=== PATIENT | female | born 1990 | race Caucasian/White ===

== ENCOUNTER 2016-12-11 20:49 | Emergency (ER) | payer OTHER ==
[~2016-12-11 20:49] MED LIST: IBUPROFEN600 MG PO
[2016-12-11 22:46] LABS: HEMOGLOBIN 12.5 gm/dl (12.3-15.3); RED BLOOD COUNT 4.09 M/UL (4.00-5.10); WHITE BLOOD COUNT 11.5 K/UL (4.5-11.0)
[2016-12-11 22:54] LABS: BUN/CREATININE RATIO 14 (0-10)
== END 2016-12-12 02:45 | disposition home or self-care (01) ==
LOC: ER1 20:49
PROVIDERS: Emergency Medicine
DX: O20.0 Threatened abortion (principal); O23.41 Unspecified infection of urinary tract in pregnancy, first trimester; O99.331 Smoking (tobacco) complicating pregnancy, first trimester; F17.210 Nicotine dependence, cigarettes, uncomplicated; Z88.2 Allergy status to sulfonamides; Z3A.01 Less than 8 weeks gestation of pregnancy
CPT/HCPCS: 36415; 76817; 80053; 81001; 84702; 85025; 86900; 86901; 87077; 87086; 87186; 99284; J7030

== ENCOUNTER → 2016-12-15 | Outpatient (CLI) | payer OTHER | LOC: LAB 09:21 | DX: N93.9 Abnormal uterine and vaginal bleeding, unspecified (principal) | CPT/HCPCS: 36415; 84702 ==

== ENCOUNTER 2016-12-25 22:03 | Emergency (ER) | payer OTHER ==
[2016-12-26 02:03] LABS: HEMOGLOBIN 11.6 gm/dl (12.3-15.3); RED BLOOD COUNT 3.8 M/UL (4.00-5.10); WHITE BLOOD COUNT 12.8 K/UL (4.5-11.0)
[2016-12-26 02:29] LABS: BUN/CREATININE RATIO 23 (0-10)
== END 2016-12-26 03:32 | disposition home or self-care (01) ==
LOC: ER1 22:03
PROVIDERS: Family Medicine
DX: O26.851 Spotting complicating pregnancy, first trimester (principal); F17.200 Nicotine dependence, unspecified, uncomplicated; Z88.2 Allergy status to sulfonamides; Z3A.01 Less than 8 weeks gestation of pregnancy
CPT/HCPCS: 36415; 80053; 81001; 84702; 84703; 85025; 99284

== ENCOUNTER → 2016-12-26 | Outpatient (CLI) | payer OTHER | LOC: US 15:16 | DX: O26.851 Spotting complicating pregnancy, first trimester (principal); Z3A.01 Less than 8 weeks gestation of pregnancy | CPT/HCPCS: 76817 ==

== ENCOUNTER 2020-07-28 17:03 | Emergency (ER) | payer OTHER | END 2020-07-28 20:35 | disposition home or self-care (01) | LOC: ER1 17:03 | DX: J00 Acute nasopharyngitis [common cold] (principal); Z20.822 Contact with and (suspected) exposure to COVID-19 | CPT/HCPCS: 93005; 99283; U0002 ==

== ENCOUNTER 2021-02-04 21:11 | Emergency (ER) | payer OTHER | END 2021-02-04 21:28 | disposition left against medical advice (07) | LOC: ER1 21:11 | DX: Z53.21 Procedure and treatment not carried out due to patient leaving prior to being seen by health care provider (principal) ==